=== PATIENT | female | born 1990 | race Caucasian/White ===

== ENCOUNTER 2017-07-20 19:26 | Emergency (ER) | payer BC, OTHER ==
[~2017-07-20] VITALS: Ht 157.5 cm; Wt 89.8 kg
[~2017-07-20 19:26] MED LIST: MTR600X PO; OXYC5TAB PO; PRENTAB26 PO; ZLF50 PO
[2017-07-20 19:39] VITALS: Ht 157.5 cm; Wt 89.8 kg
[2017-07-20] MEDS ORDERED: KETOROLAC TROMETHAMINE 15 MG/ML VIAL IV STA ×2 (19:50→22:47)
[2017-07-20] MEDS ORDERED: KETOROLAC TROMETHAMINE 30 MG/ML VIAL ONE ×2 (20:08→22:51)
[2017-07-20 20:10] LABS: BASO % 0.2 %; BASO ABS # 0.02 K/uL (0-0.2); COMPLETE YES; EOS % 5.1 %; HEMATOCRIT 42.6 % (37-47); IG% 0.2 %; LYMPH % 43.6 %; LYMPH ABS # 4.57 K/uL (1.2-3.4); MEAN CELL VOLUME 90.8 fL (80-100); MEAN CORPUSCULAR HEMOGLOBIN 30.3 pg (25-34); MEAN CORPUSCULAR HGB CONC 33.3 g/dl (32-36); MEAN PLATELET VOLUME 11.6 fL (7.4-10.4); MONO % 6.9 %; PLATELET COUNT 244 K/uL (130-400); RED BLOOD COUNT 4.69 M/uL (4.2-5.4); WHITE BLOOD COUNT 10.49 K/uL (4.8-10.8)
[2017-07-20 20:27] LABS: URINE APPEARANCE CLEAR (CLEAR); URINE BILIRUBIN NEG (NEG); URINE COLOR YELLOW; URINE NITRITE NEG (NEG); URINE PH 5.5 (4.5-7.5); UROBILINOGEN NEG (NEG); ZZUR CULT IF INDIC CLEAN CATCH NO
[2017-07-20 20:32] LABS: BUN/CREATININE RATIO 9.2 (10-20); CALCIUM 8.9 mg/dl (8.5-10.1); CREATININE 0.8 mg/dl (0.60-1.20); POTASSIUM 3.6 mmol/L (3.5-5.1)
[2017-07-20 20:32] LABS: MANUAL MICROSCOPIC REQUIRED? NO; REVIEW REQ? NO
--- NOTE | 2017-07-20 20:32 | EMERGENCY ROOM VISIT NOTE ---
History First contact with patient: 19:41 Chief Complaint: RIB PAIN Stated Complaint: PAIN IN R SIDE UNDER RIBS History of Present Illness The patient is a 27 year old female who presents to the Emergency Room with complaints of pain under her right lower ribs. The patient reports that she had some discomfort in the same area 2 days ago which resolved. She states the pain lasted about one hour at that time. The patient reports her pain returned yesterday and was dull and mild initially. The pain returned while she was eating dinner this evening. She states that she was eating chicken and rice and was about long-term through her meal. She rates the discomfort a 7/10. The pain is worse with deep inspiration and certain movements. She denies any nausea/vomiting, associated bowel movements, shortness of breath, or urinary symptoms. The patient is not a smoker. She does not take control pills. No recent travel. No history of blood clots. She still has her gallbladder. Review of Systems A complete 10 point review of systems was reviewed with the patient with pertinent positives and negatives as per history of present illness. All else were negative. Past Medical/Surgical History Medical Problems: (1) section (2) History of - miscarriage Social History Smoking Status: Former Smoker Alcohol Use: occasionally Marital Status: Housing Status: lives with family Occupation Status: employed Current/Historical Medications Scheduled Azithromycin (Zithromax), 250 MG PO DAILY Sertraline HCl (Sertraline HCl), 25 MG PO QAM Sertraline HCl (Sertraline HCl), 50 MG PO QAM Physical Exam Vital Signs Date Time Temp Pulse Resp B/P (MAP) Pulse Ox O2 Delivery O2 Flow Rate FiO2 07/20/17 23:17 36.8 65 16 106/84 99 07/20/17 22:55 65 16 106/84 99 Room Air 07/20/17 21:12 60 18 121/58 98 Room Air 07/20/17 19:39 36.8 85 20 137/80 98 Room Air Physical Exam VITALS: Vitals are noted on the nurse's note and reviewed by myself. Vital signs stable. GENERAL: This is a 27-year-old female, in no acute distress, nondiaphoretic, well-developed well-nourished. SKIN: There are no rashes. HEART: Regular rate and rhythm without murmurs gallops or rubs. LUNGS: Clear to auscultation bilaterally without wheezes, rales or rhonchi. No retractions or accessory muscle use. ABDOMEN: Positive bowel sounds x 4. Soft, tenderness to palpation in the right upper quadrant of the abdomen. MUSCULOSKELETAL: There is no tenderness to palpation of the lower ribs. NEURO: Patient was alert and oriented to person place and time. Medical Decision & Procedures ER Provider Diagnostic Interpretation: CHEST ONE VIEW PORTABLE FINDINGS: Cardiomediastinal silhouette normal. Lungs and pleural spaces clear. Osseous structures normal. Upper abdomen normal. IMPRESSION: 1. No acute cardiopulmonary disease. GALLBLADDER-ABD LIMITED IMPRESSION: 1. Hepatic steatosis. Correlate with LFTs to exclude steatohepatitis as a cause for abdominal pain. 2. No cholelithiasis or biliary ductal dilatation. (CHEST FOR PE) ANGIO WITH IMPRESSION: 1. No evidence of pulmonary embolus. 2. Multiple solid peripheral pulmonary nodules bilaterally. Differential considerations for this include infection, namely atypical infections including fungal and granulomatous infections, vasculitis, sarcoidosis, and metastatic disease among other etiologies. Correlate clinically. Follow-up to resolution should be obtained. Laboratory Results 07/20/17 19:57 Red Blood Count 4.69, Mean Corpuscular Volume 90.8, Mean Corpuscular Hemoglobin 30.3, Mean Corpuscular Hemoglobin Concent 33.3, Mean Platelet Volume 11.6, Neutrophils (%) (Auto) 44.0, Lymphocytes (%) (Auto) 43.6, Monocytes (%) (Auto) 6.9, Eosinophils (%) (Auto) 5.1, Basophils (%) (Auto) 0.2, Neutrophils # (Auto) 4.63, Lymphocytes # (Auto) 4.57, Monocytes # (Auto) 0.72, Eosinophils # (Auto) 0.53, Basophils # (Auto) 0.02 07/20/17 19:57 Test 07/20/17 19:57 07/20/17 20:18 07/20/17 20:39 White Blood Count 10.49 K/uL (4.8-10.8) Red Blood Count 4.69 M/uL (4.2-5.4) Hemoglobin 14.2 g/dL (12.0-16.0) Hematocrit 42.6 % (37-47) Mean Corpuscular Volume 90.8 fL (80-100) Mean Corpuscular Hemoglobin 30.3 pg (25-34) Mean Corpuscular Hemoglobin Concent 33.3 g/dl (32-36) Platelet Count 244 K/uL (130-400) Mean Platelet Volume 11.6 fL (7.4-10.4) Neutrophils (%) (Auto) 44.0 % Lymphocytes (%) (Auto) 43.6 % Monocytes (%) (Auto) 6.9 % Eosinophils (%) (Auto) 5.1 % Basophils (%) (Auto) 0.2 % Neutrophils # (Auto) 4.63 K/uL (1.4-6.5) Lymphocytes # (Auto) 4.57 K/uL (1.2-3.4) Monocytes # (Auto) 0.72 K/uL (0.11-0.59) Eosinophils # (Auto) 0.53 K/uL (0-0.5) Basophils # (Auto) 0.02 K/uL (0-0.2) RDW Standard Deviation 44.3 fL (36.4-46.3) RDW Coefficient of Variation 13.4 % (11.5-14.5) Immature Granulocyte % (Auto) 0.2 % Immature Granulocyte # (Auto) 0.02 K/uL (0.00-0.02) Anion Gap 9.0 mmol/L (3-11) Est Creatinine Clear Calc Drug Dose 112.0 ml/min Estimated GFR () 118.8 Estimated GFR (Non- 102.5 BUN/Creatinine Ratio 9.2 (10-20) Calcium Level 8.9 mg/dl (8.5-10.1) Total Bilirubin 0.4 mg/dl (0.2-1) Aspartate Amino Transf (AST/SGOT) 17 U/L (15-37) Alanine Aminotransferase (ALT/SGPT) 20 U/L (12-78) Alkaline Phosphatase 90 U/L (45-117) Total Protein 7.8 gm/dl (6.4-8.2) Albumin 3.7 gm/dl (3.4-5.0) Globulin 4.1 gm/dl (2.5-4.0) Albumin/Globulin Ratio 0.9 (0.9-2) Lipase 130 U/L (73-393) Urine Color YELLOW Urine Appearance CLEAR (CLEAR) Urine pH 5.5 (4.5-7.5) Urine Specific [place] 1.020 (1.000-1.030) Urine Protein NEG (NEG) Urine Glucose (UA) NEG (NEG) Urine Ketones NEG (NEG) Urine Occult Blood NEG (NEG) Urine Nitrite NEG (NEG) Urine Bilirubin NEG (NEG) Urine Urobilinogen NEG (NEG) Urine Leukocyte Esterase NEG (NEG) Urine Test NEG (NEG) D-Dimer 650 ug/L FEU (0-500) Medications Administered Medications (Trade) Dose Ordered Sig/Jose Luis Route Start Time Stop Time Status Last Admin Dose Admin Ketorolac Tromethamine (Toradol Inj) 30 mg STK-MED ONCE .ROUTE 07/20/17 20:08 07/20/17 20:09 DC 07/20/17 20:10 15 MG Ketorolac Tromethamine (Toradol Inj) 30 mg STK-MED ONCE .ROUTE 07/20/17 22:51 07/20/17 22:52 DC 07/20/17 22:53 15 MG Azithromycin (Zithromax Tab) 500 mg NOW STAT PO 07/20/17 23:09 07/20/17 23:10 DC 07/20/17 23:16 500 MG ED Course The patient was evaluated as above. Labs were drawn and IV access was obtained. Patient was medicated with 15 mg Toradol IV. Multiple imaging studies were performed and read by radiology as above. Patient was reevaluated and her pain was returning. She was given an additional dose of Toradol at this time. Discharge instructions were reviewed with the patient. The patient verbalized understanding of my assessment and treatment plan and was discharged home in good condition. Medical Decision Differential diagnosis includes cholecystitis, pancreatitis, choledocholithiasis , pulmonary embolism, pneumonia, costochondritis, rib injury, among others. The patient is a 27-year-old female who presents today complaining of right rib/ right upper quadrant pain. Labs revealed no leukocytosis, anemia or concerning electrolyte abnormalities. Liver function tests are within normal limits. Lipase was not elevated. Right upper quadrant ultrasound did not show any acute findings. CT of the chest was performed due to elevated d-dimer. This revealed findings consistent with possible atypical infection. I am unsure of the etiology of this, as the patient does not have shortness of breath or cough. Patient will be covered for pneumonia at this time with Zithromax and will need close follow-up with pulmonology. She was given information for the accounting assistant on-call and will make an appointment. She was encouraged to return here for any worsening symptoms. The patient's case was reviewed with Dr. Hutchins, ED attending physician, who agreed with my assessment and treatment plan. Based on the patient's presentation and work up, I feel the patient is stable for outpatient treatment. The patient was educated to return to the emergency department for any worsening of their current condition or new/concerning symptoms. She will follow up with Dr. Bates. Medication Reconcilliation Current Medication List: was personally reviewed by me Blood Pressure Screening Patient's blood pressure: Normal blood pressure Impression Primary Impression: Rib pain on right side Departure Information Dispostion Home / Self-Care Condition GOOD Prescriptions Azithromycin (Zithromax) 250 Mg Tab 250 MG PO DAILY for 4 Days, #4 TAB Prov: Janay Kwon .KOLE 07/20/17 Referrals Jimmy Rutledge M.D. (PCP) Patient Instructions My [facility] Additional Instructions Take the Zithromax as prescribed. Ibuprofen, 600 mg every 6 hours for pain. Follow-up with a accounting assistant. You were given the information for Dr. Bates. Call his office to schedule a follow-up appointment. Return to the emergency department for any worsening or new/concerning symptoms.
[2017-07-20 20:35] LABS: ALB/GLOB RATIO 0.9 (0.9-2)
--- NOTE | 2017-07-20 20:52 | DIAGNOSTIC IMAGING REPORT ---
GALLBLADDER-ABD LIMITED CLINICAL HISTORY: 27 years-old Female presenting with RUQ pain. TECHNIQUE: Real-time grayscale and limited color Doppler ultrasound imaging of the abdomen limited to the right upper quadrant was performed. COMPARISON: CT from 2008. FINDINGS: Pancreas: Visualized portions of the pancreatic head and body normal. 1.6 x 0.8 cm ovoid hypoechoic mass most consistent with benign appearing peripancreatic lymph node. Liver: Moderately hyperechogenic parenchyma with partial obscuration of the right hemidiaphragm, likely indicating moderate steatosis. The liver measures 15.7 cm in maximal sagittal dimension. No sonographic evidence of hepatic mass. Main portal vein patent with normal directional flow. Biliary: No intrahepatic biliary ductal dilatation. Common bile duct measures up to 4 mm in diameter. Gallbladder: Decompressed. No evidence of gallstones. Right kidney: Normal in appearance. No hydronephrosis. Ascites: None. IMPRESSION: 1. Hepatic steatosis. Correlate with LFTs to exclude steatohepatitis as a cause for abdominal pain. 2. No cholelithiasis or biliary ductal dilatation. Electronically signed by: Minh Roy M.D. 07/20/2017 8:51 PM Dictated Date/Time: 07/20/2017 8:49 PM
--- NOTE | 2017-07-20 21:36 | DIAGNOSTIC IMAGING REPORT ---
CHEST ONE VIEW PORTABLE CLINICAL HISTORY: 27 years-old Female presenting with right rib pain. TECHNIQUE: Portable upright AP view of the chest was obtained. COMPARISON: None. FINDINGS: Cardiomediastinal silhouette normal. Lungs and pleural spaces clear. Osseous structures normal. Upper abdomen normal. IMPRESSION: 1. No acute cardiopulmonary disease. Electronically signed by: Minh Roy M.D. 07/20/2017 9:35 PM Dictated Date/Time: 07/20/2017 9:34 PM
[2017-07-20] MEDS ORDERED: SERT1TAB88 PO (21:46)
[2017-07-20] MEDS ORDERED: ZLF/50 PO (21:46)
[2017-07-20] MEDS ORDERED: OPTIRAY 320 IV PRN (22:45)
--- NOTE | 2017-07-20 22:45 | DIAGNOSTIC IMAGING REPORT ---
(CHEST FOR PE) ANGIO WITH CLINICAL HISTORY: 27 years-old Female presenting with ^right rib pain, inspiratory pain, elevated ddimer. TECHNIQUE: Multidetector CT angiography of the chest was performed after administration of intravenous contrast. 3-D volumetric and/or maximum intensity projection (MIP) images were subsequently reconstructed for review. IV contrast: 84 mL of Optiray 320. A dose lowering technique was used consistent with the principles of ALARA (as low as reasonably achievable). COMPARISON: Chest x-ray performed earlier the same day. CT DOSE (mGy.cm): The estimated cumulative dose is 385.03 mGy.cm. FINDINGS: [facility] topogram: Unremarkable. Pulmonary vasculature: The study is adequate for assessment of the pulmonary vascular tree. No filling defect within the pulmonary arteries to suggest embolus. Main pulmonary artery is not enlarged. No flattening of the interventricular septum. No intracardiac intracardiac filling defect. No reflux of contrast into the hepatic veins. Remaining chest: On soft tissue windows, normal thyroid and thoracic inlet. Few small but prominent hilar lymph nodes noted. No pathologically enlarged lymph nodes by CT size criteria. Normal aorta. Normal heart size. No pericardial or pleural effusion. Upper abdomen normal. On lung windows, solid 9 mm peripheral nodule in the left lower lobe (series 4 image 85). Solid peripheral nodules also noted in the left upper lobe (series 4 image 210), right upper lobe measuring 10 mm (series 4 image 230), right lower lobe (series 4 image 183). Subtle areas of scattered groundglass opacity may also be present, primarily in the lung apices. Airways patent. On bone windows, normal osseous structures. IMPRESSION: 1. No evidence of pulmonary embolus. 2. Multiple solid peripheral pulmonary nodules bilaterally. Differential considerations for this include infection, namely atypical infections including fungal and granulomatous infections, vasculitis, sarcoidosis, and metastatic disease among other etiologies. Correlate clinically. Follow-up to resolution should be obtained. Electronically signed by: Minh Roy M.D. 07/20/2017 10:43 PM Dictated Date/Time: 07/20/2017 10:35 PM
[2017-07-20] MEDS ORDERED: AZIT250T PO (23:06)
[2017-07-20] MEDS ORDERED: AZITHROMYCIN 250 MG TAB PO STA (23:09)
[2017-07-20 23:17] VITALS: BP 106/84; PULSE 65; TEMP 36.8; O2SAT 99
== END 2017-07-20 23:18 | disposition home or self-care (01) ==
LOC: C.EDB 19:27
DX: R07.81 Pleurodynia (principal); Z79.899 Other long term (current) drug therapy; Z87.891 Personal history of nicotine dependence

== ENCOUNTER → 2017-08-18 | Outpatient (CLI) | payer BC, OTHER ==
[~2017-08-18] MED LIST changes: -MTR600X PO; -OXYC5TAB PO; -PRENTAB26 PO; +SERT1TAB88 PO; +ZLF/50 PO; -ZLF50 PO
--- NOTE | 2017-08-18 13:44 | DIAGNOSTIC IMAGING REPORT ---
PET/CT HISTORY: Follow-up PULMONARY NODULE TECHNIQUE: PET/CT was performed from the base of the skull through the pelvis following the intravenous administration of 13.13 mCi of F18-FDG. Non-contrast CT imaging was performed over the same range without breath-hold for attenuation correction of PET images and anatomic correlation, but not for primary interpretation as it is not of standard diagnostic quality. CT DOSE: COMPARISON: Chest CTA 07/20/2017. FINDINGS: HEAD AND NECK: Hypertrophy adenoid and palatine tonsils which demonstrate moderate to intense FDG uptake with an SUV max of 8. Multiple focal areas of FDG uptake seen within the posterior triangles of the neck, axilla, and thoracic paraspinal location. These areas do not correspond to lymph nodes and are consistent with brown fat. These demonstrate an SUV max of 7. There are few prominent posterior cervical chain lymph nodes which do not demonstrate abnormal FDG uptake. Dominant right posterior cervical chain lymph node measures 9 x 6 mm. Therefore, these are likely benign. CHEST: There is no FDG-avid disease in the chest. There is no axillary, mediastinal, or hilar lymphadenopathy. There is no pleural or pericardial effusion. There is no air-space disease or suspicious lung nodule. Specifically, the nodules seen on the prior study have resolved in the interval. ABDOMEN/PELVIS: Below the diaphragm, tracer is distributed physiologically in the gastrointestinal and genitourinary tracts. There is no significant lymphadenopathy and no FDG-avid disease. MUSCULOSKELETAL: There is no FDG-avid or destructive bone lesion. IMPRESSION: 1. The pulmonary nodules seen on the prior study have resolved. 2. Multifocal areas of FDG uptake seen within the posterior neck, axilla, and thoracic paraspinal locations. No corresponding CT abnormality. Therefore, this is consistent with a brown fat deposition. 3. FDG avid and hypertrophied adenoid and palatine tonsils. This favors a tonsillitis. Electronically signed by: Chidi Travis M.D. 08/18/2017 1:43 PM Dictated Date/Time: 08/18/2017 1:22 PM
== END | disposition home or self-care (01) ==
LOC: C.PET 09:13
PROVIDERS: ATTEND Physician Assistant
DX: R91.1 Solitary pulmonary nodule (principal); R93.8 Abnormal findings on diagnostic imaging of other specified body structures